=== PATIENT | male | born 1995 | race Caucasian/White ===

== ENCOUNTER 2018-09-26 22:31 | Emergency (ER) | payer SELFPAY ==
[~2018-09-26] VITALS: Ht 182.9 cm; Wt 88.5 kg
[2018-09-26] MEDS ORDERED: IBUPROFEN 400 MG TAB PO ONE (23:45)
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
[2018-09-27 01:41] VITALS: BP 149/90
== END 2018-09-27 01:42 | disposition home or self-care (01) ==
LOC: FSED 22:31
DX: G44.309 Post-traumatic headache, unspecified, not intractable (principal); S06.0X0A Concussion without loss of consciousness, initial encounter; V28.0XXA Motorcycle driver injured in noncollision transport accident in nontraffic accident, initial encounter; Y92.410 Unspecified street and highway as the place of occurrence of the external cause; F17.210 Nicotine dependence, cigarettes, uncomplicated
CPT/HCPCS: 70450; 99283